=== PATIENT | female | born 1940 | race Caucasian/White ===

== ENCOUNTER 2017-05-27 12:00 | Inpatient (IN) | payer OTHER, MEDICARE ==
[2017-05-27 12:03] VITALS: BP 223/105; PULSE 63; RESP 15; TEMP 97.8; O2SAT 99
--- NOTE | 2017-05-27 13:17 | PD ---
HPI Chief Complaint: Abdominal Pain Time Seen by Provider: 12:22 Travel History International Travel<30 days: No Contact w/Intl Traveler<30days: No Traveled to known affect area: No History of Present Illness HPI 77-year-old female well-nourished well-developed arrives from urgent care clinic. She reports abdominal pain this morning in the left lower quadrant from the back to the front. She states the pain is severe. She felt mild similar pain 2 weeks ago and then again this morning with no intermittent pain. Nausea is reported with dry heaving however no vomiting of emesis. No diarrhea. No urinary complaints. No fever. Severity moderate. Timing constant. PFSH Social History Tobacco Use: No Allergies-Medications (Allergen,Severity, Reaction): Coded Allergies: No Known Allergies (Unverified , 05/27/17) Review of Systems Except as stated in HPI: all other systems reviewed are Neg General / Constitutional: No: Fever Physical Exam Narrative GENERAL: 77-year-old female well-nourished well-developed pleasant and in mild distress SKIN: Warm and dry. HEAD: Atraumatic. Normocephalic. EYES: Pupils equal and round. No scleral icterus. No injection or drainage. ENT: No nasal bleeding or discharge. Mucous membranes pink and moist. NECK: Trachea midline. No JVD. CARDIOVASCULAR: Regular rate and rhythm. RESPIRATORY: No accessory muscle use. Clear to auscultation. Breath sounds equal bilaterally. GASTROINTESTINAL: Soft. Minimal tenderness in the suprapubic area and left lower abdomen. MUSCULOSKELETAL: Extremities without clubbing, cyanosis, or edema. No obvious deformities. NEUROLOGICAL: Awake and alert. No obvious cranial nerve deficits. Motor grossly within normal limits. Five out of 5 muscle strength in the arms and legs. Normal speech. PSYCHIATRIC: Appropriate mood and affect; insight and judgment normal. Data Data Last Documented VS Vital Signs Date Time Temp Pulse Resp B/P (MAP) Pulse Ox O2 Delivery O2 Flow Rate FiO2 05/27/17 16:12 98.8 65 16 136/98 (111) 93 Room Air Vital signs reviewed and hypertension noted Orders Orders Complete Blood Count With Diff (05/27/17 12:30) Comprehensive Metabolic Panel (05/27/17 12:30) Lipase (05/27/17 12:30) Lactic Acid (05/27/17 12:30) Urinalysis - C+S If Indicated (05/27/17 12:30) Ct Abd/Pel W Iv Contrast(Rout) (05/27/17 12:30) Iv Access Insert/Monitor (05/27/17 12:30) Ecg Monitoring (05/27/17 12:30) Oximetry (05/27/17 12:30) Iohexol 350 Inj (Omnipaque 350 Inj) (05/27/17 15:09) Piperacil-Tazo 4.5 Gm Premix (Zosyn 4.5 (05/27/17 15:45) Sodium Chlor 0.9% 1000 Ml Inj (Ns 1000 M (05/27/17 15:45) Hydromorphone Pf Inj (Dilaudid Pf Inj) (05/27/17 16:15) Ondansetron Inj (Zofran Inj) (05/27/17 16:15) Admit Order (Ed Use Only) (05/27/17 ) Health Commissioner / Telemetry RYAN.[id number] (05/27/17 17:04) Vital Signs (Adult) Q4H (05/27/17 17:04) Diet Npo (05/27/17 Dinner) Activity Bed Rest (05/27/17 17:04) Labs Laboratory Tests Test 05/27/17 12:45 05/27/17 13:00 White Blood Count 12.0 TH/MM3 Red Blood Count 5.11 MIL/MM3 Hemoglobin 14.0 GM/DL Hematocrit 42.3 % Mean Corpuscular Volume 82.8 FL Mean Corpuscular Hemoglobin 27.3 PG Mean Corpuscular Hemoglobin Concent 33.0 % Red Cell Distribution Width 14.8 % Platelet Count 278 TH/MM3 Mean Platelet Volume 10.0 FL Neutrophils (%) (Auto) 91.5 % Lymphocytes (%) (Auto) 5.5 % Monocytes (%) (Auto) 2.8 % Eosinophils (%) (Auto) 0.0 % Basophils (%) (Auto) 0.2 % Neutrophils # (Auto) 11.0 TH/MM3 Lymphocytes # (Auto) 0.7 TH/MM3 Monocytes # (Auto) 0.3 TH/MM3 Eosinophils # (Auto) 0.0 TH/MM3 Basophils # (Auto) 0.0 TH/MM3 CBC Comment DIFF FINAL Differential Comment Blood Urea Nitrogen 17 MG/DL Creatinine 1.02 MG/DL Random Glucose 122 MG/DL Total Protein 8.0 GM/DL Albumin 3.9 GM/DL Calcium Level 10.4 MG/DL Alkaline Phosphatase 69 U/L Aspartate Amino Transf (AST/SGOT) 32 U/L Alanine Aminotransferase (ALT/SGPT) 18 U/L Total Bilirubin 0.5 MG/DL Sodium Level 136 MEQ/L Potassium Level 4.9 MEQ/L Chloride Level 105 MEQ/L Carbon Dioxide Level 25.9 MEQ/L Anion Gap 5 MEQ/L Estimat Glomerular Filtration Rate 53 ML/MIN Lactic Acid Level 1.0 mmol/L Lipase 76 U/L Urine Color LIGHT-YELLOW Urine Turbidity HAZY Urine pH 7.0 Urine Specific [place] 1.014 Urine Protein TRACE mg/dL Urine Glucose (UA) NEG mg/dL Urine Ketones TRACE mg/dL Urine Occult Blood NEG Urine Nitrite NEG Urine Bilirubin NEG Urine Urobilinogen LESS THAN 2.0 MG/DL Urine Leukocyte Esterase MOD Urine RBC 2 /hpf Urine WBC 7 /hpf Urine Squamous Epithelial Cells <1 /hpf Urine Transitional Epithelial Cells <1 /hpf Urine Amorphous Sediment FEW Microscopic Urinalysis Comment CULT NOT INDICATED MDM Medical Decision Making Medical Screen Exam Complete: Yes Emergency Medical Condition: Yes Differential Diagnosis Constipation, Gastritis, Acute Cholecystitis, Biliary Colic, Pancreatitis, ABREU , Hepatitis, Bowel Obstruction, Cystitis, Mesenteric Ischemia, AAA, Appendicitis , Renal Stone/Hydronephrosis, GERD, perforated viscous Narrative Course CBC & BMP Diagram 05/27/17 12:45 Total Protein 8.0, Albumin 3.9, Calcium Level 10.4 H, Alkaline Phosphatase 69, Aspartate Amino Transf (AST/SGOT) 32, Alanine Aminotransferase (ALT/SGPT) 18, Total Bilirubin 0.5 Urinalysis shows wbc's potentially consistent with UTI Last 24 hours Impressions Abdomen/Pelvis CT 05/27/17 1230 Signed Impressions: Service Date/Time: Saturday, May 27, 2017 15:06 - CONCLUSION: 1. Left-sided hydronephrosis and hydroureter. 2. Significant left-sided perinephric and anterior pararenal fluid characteristic of ruptured collecting system. 3. 3 mm calculus in the urinary bladder likely representing the obstructing calculus which has now passed into the bladder. 4. No other significant abnormality. Umair Dorsey MD Case discussed with urology. IV hydration and pain control. No indication for operative intervention this point Case discussed with Dr Degroot for [facility]. WBCs in urine noted. Zosyn started. 0.5 mg hydromorphone with antiemetics given at about 4:45 PM. Diagnosis Primary Impression: Hydronephrosis Qualified Codes: N13.30 - Unspecified hydronephrosis Admitting Information Admitting Physician Requests: Observation Tang Castañeda MD May 27, 2017 13:17
[2017-05-27 13:40] LABS: BLOOD, URINE NEG (NEG); GLUCOSE,URINE NEG (NEG); KETONE, URINE TRACE mg/dL (NEG); NITRITE,URINE NEG (NEG); SQUAMOUS EPITHELIAL CELL URINE <1 /hpf (0-5); TRANSITIONAL EPI CELLS, URINE <1 /hpf; URINE COLOR LIGHT-YELLOW (YELLW/STRAW)
[2017-05-27 13:41] LABS: COMMENT (UR) CULT NOT INDICATED; CULTURE IF INDICATED CULT NOT INDICATED
[2017-05-27 14:01] LABS: BASOPHIL % 0.2 % (0.0-2.0); HEMATOCRIT 42.3 % (35.0-46.0); HEMO FLAGS DIFF FINAL; LYMPH % 5.5 % (9.0-44.0); LYMPHOCYTE # 0.7 TH/MM3 (1.0-4.8); MEAN CELL VOLUME 82.8 FL (80.0-100.0); MEAN CORPUSCULAR HEMOGLOBIN 27.3 PG (27.0-34.0); MONO % 2.8 % (0.0-8.0); NEUT % 91.5 % (16.0-70.0); PLATELET COUNT 278 TH/MM3 (150-450); RED BLOOD COUNT 5.11 MIL/MM3 (4.00-5.30); RED CELL DISTRIBUTION WIDTH 14.8 % (11.6-17.2)
[2017-05-27 14:23] LABS: ALKALINE PHOSPHATASE 69 U/L (45-117); TOTAL BILIRUBIN ADULT 0.5 MG/DL (0.2-1.0)
[2017-05-27 14:27] LABS: ALT (GPT) 18 U/L (10-53); ANION GAP 5 MEQ/L (5-15); AST (GOT) 32 U/L (15-37); BICARBONATE 25.9 MEQ/L (21.0-32.0); BLOOD UREA NITROGEN 17 MG/DL (7-18); CHLORIDE 105 MEQ/L (98-107); GLOMERULAR FILTRATION RATE 53 ML/MIN (>89); SODIUM (NA) 136 MEQ/L (136-145)
[2017-05-27 14:29] LABS: POTASSIUM 4.9 MEQ/L (3.5-5.1)
[2017-05-27] MEDS ORDERED: IOHEXOL 350 MG/ML 10 ML VIAL (for RAD DIAG) IVCONTRAST ONE (15:09)
[2017-05-27] MEDS ORDERED: PIPERACIL-TAZO 4.5 GM PREMIX 100 ML IV ONE (15:45)
[2017-05-27] MEDS ORDERED: SODIUM CHLOR 0.9% 1000 ML INJ 1,000 ML IV ONE (15:45)
--- NOTE | 2017-05-27 15:54 | RADRPT ---
EXAM DATE/TIME: 05/27/2017 15:06 [place] COMPARISON: No previous studies available for comparison. INDICATIONS : Left abdominal pain. Nausea. IV CONTRAST: 80 cc Omnipaque 350 (iohexol) IV ORAL CONTRAST: No oral contrast ingested. RADIATION DOSE: 14.02 CTDIvol (mGy) MEDICAL HISTORY : Hypertension. SURGICAL HISTORY : Hysterectomy. ENCOUNTER: Initial ACUITY: 1 day PAIN SCALE: 10/10 LOCATION: Left abdomen. TECHNIQUE: Volumetric scanning of the abdomen and pelvis was performed. Using automated exposure control and ad justment of the mA and/or kV according to patient size, radiation dose was kept as low as reasonably achievable to obtain optimal diagnostic quality images. DICOM format image data is available electro nically for review and comparison. FINDINGS: LOWER LUNGS: The visualized lower lungs are clear. LIVER: Homogeneous density without lesion. There is no dilation of the biliary tree. No calcified gallston es. SPLEEN: Normal size without lesion. PANCREAS: Within normal limits. KIDNEYS: Marked distention is noted of the left renal collecting system. There is moderate hydronephrosis and [id number] hydroureter. Significant left-sided perinephric and anterior pararenal fluid is iden tified. The there are no calcifications seen in the left renal collecting system or along the course of the ureter. A 3 mm calculus is evident in the bladder. Right kidney and collecting system are unremarkable. ADRENAL GLANDS: Within normal limits. VASCULAR: There is no aortic aneurysm. BOWEL/MESENTERY: The stomach, small bowel, and colon demonstrate no acute abnormality. There is no free intraperitone al air or fluid. ABDOMINAL WALL: Within normal limits. RETROPERITONEUM: There is no lymphadenopathy. BLADDER: 3 mm calculus is identified along the posterior bladder wall adjacent to the left ureteral vesicle ju nction. REPRODUCTIVE: Within normal limits. INGUINAL: There is no lymphadenopathy or hernia. MUSCULOSKELETAL: Within normal limits for patient age. CONCLUSION: 1. Left-sided hydronephrosis and hydroureter. 2. Significant left-sided perinephric and anterior pararenal fluid characteristic of ruptured collect ing system. 3. 3 mm calculus in the urinary bladder likely representing the obstructing calculus which has now pa ssed into the bladder. 4. No other significant abnormality. Umair Dorsey MD on May 27, 2017 at 15:46 Board Certified Radiologist. This report was verified electronically.
[2017-05-27 16:12] VITALS: BP 136/98; PULSE 65; PULSE 71; RESP 15; RESP 16; TEMP 98.8; O2SAT 93; O2SAT 94
[2017-05-27] MEDS ORDERED: ONDANSETRON HCL 4 MG/2 ML VIAL IV PUSH ONE (16:15)
[2017-05-27] MEDS ORDERED: HYDROmorphone HCL PF 2 MG/ML VIAL IV PUSH ONE (16:15)
[2017-05-27 17:23] VITALS: BP 132/88
[2017-05-27] MEDS ORDERED: SODIUM CHLOR 0.9% 1000 ML INJ 1,000 ML IV SCH (17:56)
[2017-05-27 18:00] VITALS: BP_SYST 148; BP_SYST 181; BP_DIAS 68; BP_DIAS 83; PULSE 63; RESP 17; RESP 20; TEMP 97.6; O2SAT 92; O2SAT 94
[2017-05-27] MEDS ORDERED: SODIUM CHLORIDE 0.9% FLUSH 10 ML FLUSH IV FLUSH PRN (18:00)
[2017-05-27] MEDS ORDERED: ONDANSETRON HCL 4 MG/2 ML VIAL IVP PRN (18:00)
[2017-05-27] MEDS ORDERED: NALOXONE HCL 0.4 MG/ML AMP IV PUSH PRN (18:00)
[2017-05-27] MEDS ORDERED: HYDROmorphone HCL 2 MG TAB PO PRN (18:15)
--- NOTE | 2017-05-27 18:31 | HHI.HP ---
HPI Service [facility] Primary Care Physician Anmol Samson MD Admission Diagnosis Hydronephrosis; Vomiting Diagnoses: Chief Complaint: Left flank pain Travel History International Travel<30 Days: No Contact w/Intl Traveler <30 Da: No Traveled to Known Affected Are: No Sepsis Criteria SIRS Criteria (2 or more): WBC > 97431, < 4000 or > 10% bands History of Present Illness Patient is a 77-year-old female with past medical history of rheumatoid arthritis who came in due to hospital after being seen at the urgent care center for left flank pain, with nausea. Patient states she woke up this morning with left-sided flank pain that she described as very severe and sharp, about 10 over 10 radiating towards her abdomen and making her nauseous. She went to the urgent care center and was told to go to the emergency department at the hospital for further evaluation. Patient states that she is feeling much better now after they give her some pain medication, the pain is 5/10 and she is able to move around without any problems. Denies nausea, vomiting, fevers. Reports chills this morning. Denies any dysuria, hematuria. Denies any chest pain, palpitations, headaches, dizziness. Denies any shortness of breath or dyspnea. Abdominal CT showed 1. Left-sided hydronephrosis and hydroureter. 2. Significant left-sided perinephric and anterior pararenal fluid characteristic of ruptured collecting system. 3. 3 mm calculus in the urinary bladder likely representing obstructing calculus which has now passed into the bladder no other significant abnormality. Review of Systems Except as stated in HPI: all other systems reviewed are Neg Past Family Social History Past Medical History Rheumatoid arthritis Question hypertension but states she doesn't take any medication Questionable thyroid disease but states she doesn't take any medication Past Surgical History Right knee replacement Reported Medications None Allergies: Coded Allergies: No Known Allergies (Unverified , 05/27/17) Active Ordered Medications Current Medications Medications (Trade) Dose Ordered Sig/Bharathi Route Start Time Stop Time Status Last Admin Sodium Chloride 1,000 ml @ 75 mls/hr [id number] IV 05/27/17 17:56 UNV (NS Flush) 2 ml UNSCH PRN IV FLUSH 05/27/17 18:00 UNV (NS Flush) 2 ml BID IV FLUSH 05/27/17 21:00 UNV (Zofran Inj) 4 mg Q6H PRN IVP 05/27/17 18:00 UNV (Narcan Inj) 0.4 mg UNSCH PRN IV PUSH 05/27/17 18:00 UNV Piperacillin Sod/ Tazobactam Sod 100 ml @ 200 mls/hr Q6H IV 05/27/17 21:00 UNV (Dilaudid) 1 mg Q6H PRN PO 05/27/17 18:15 UNV Family History Father and mother have heart disease. Father at the age of 91, mother at the age of 85 Social History Denies alcohol use Denies tobacco use Denies illicit drug use Physical Exam Vital Signs Vital Signs Date Time Temp Pulse Resp B/P (MAP) Pulse Ox O2 Delivery O2 Flow Rate FiO2 05/27/17 17:23 70 16 132/88 (103) 95 05/27/17 16:12 98.8 65 16 136/98 (111) 93 Room Air 05/27/17 16:12 98.8 71 15 136/98 (111) 94 Room Air 05/27/17 12:03 97.8 63 15 223/105 (144) 99 Physical Exam GENERAL: This is a well-nourished, well-developed patient, in no apparent distress. SKIN: Cool and dry. HEAD: Atraumatic. Normocephalic. No temporal or scalp tenderness. EYES: Pupils equal round and reactive. Extraocular motions intact. No scleral icterus. No injection or drainage. ENT: Nose without bleeding. Throat without erythema. Uvula midline. Airway patent. NECK: Trachea midline. No JVD or lymphadenopathy. Supple. CARDIOVASCULAR: Regular rate and rhythm without murmurs, gallops, or rubs. RESPIRATORY: Clear to auscultation. Breath sounds equal bilaterally. No wheezes , rales, or rhonchi. GASTROINTESTINAL: Abdomen soft, nondistended. Bowel sounds hypoactive. Mild CVA tenderness left side and left flank area. MUSCULOSKELETAL: Extremities without clubbing, cyanosis, or edema. NEUROLOGICAL: Awake and alert. Cranial nerves II through XII intact. Motor and sensory grossly within normal limits. Normal speech. Laboratory Laboratory Tests Test 05/27/17 12:45 05/27/17 13:00 White Blood Count 12.0 Red Blood Count 5.11 Hemoglobin 14.0 Hematocrit 42.3 Mean Corpuscular Volume 82.8 Mean Corpuscular Hemoglobin 27.3 Mean Corpuscular Hemoglobin Concent 33.0 Red Cell Distribution Width 14.8 Platelet Count 278 Mean Platelet Volume 10.0 Neutrophils (%) (Auto) 91.5 Lymphocytes (%) (Auto) 5.5 Monocytes (%) (Auto) 2.8 Eosinophils (%) (Auto) 0.0 Basophils (%) (Auto) 0.2 Neutrophils # (Auto) 11.0 Lymphocytes # (Auto) 0.7 Monocytes # (Auto) 0.3 Eosinophils # (Auto) 0.0 Basophils # (Auto) 0.0 CBC Comment DIFF FINAL Differential Comment Blood Urea Nitrogen 17 Creatinine 1.02 Random Glucose 122 Total Protein 8.0 Albumin 3.9 Calcium Level 10.4 Alkaline Phosphatase 69 Aspartate Amino Transf (AST/SGOT) 32 Alanine Aminotransferase (ALT/SGPT) 18 Total Bilirubin 0.5 Sodium Level 136 Potassium Level 4.9 Chloride Level 105 Carbon Dioxide Level 25.9 Anion Gap 5 Estimat Glomerular Filtration Rate 53 Lactic Acid Level 1.0 Lipase 76 Urine Color LIGHT-YELLOW Urine Turbidity HAZY Urine pH 7.0 Urine Specific [place] 1.014 Urine Protein TRACE Urine Glucose (UA) NEG Urine Ketones TRACE Urine Occult Blood NEG Urine Nitrite NEG Urine Bilirubin NEG Urine Urobilinogen LESS THAN 2.0 Urine Leukocyte Esterase MOD Urine RBC 2 Urine WBC 7 Urine Squamous Epithelial Cells <1 Urine Transitional Epithelial Cells <1 Urine Amorphous Sediment FEW Microscopic Urinalysis Comment CULT NOT INDICATED Result Diagram: 05/27/17 1245 05/27/17 1245 Imaging Last Impressions Abdomen/Pelvis CT 05/27/17 1230 Signed Impressions: Service Date/Time: Saturday, May 27, 2017 15:06 - CONCLUSION: 1. Left-sided hydronephrosis and hydroureter. 2. Significant left-sided perinephric and anterior pararenal fluid characteristic of ruptured collecting system. 3. 3 mm calculus in the urinary bladder likely representing the obstructing calculus which has now passed into the bladder. 4. No other significant abnormality. Umair F. Sunita, MD Caprini VTE Risk Assessment Caprini VTE Risk Assessment: Mod/High Risk (score >= 2) Caprini Risk Assessment Model Point Value = 1 Point Value = 2 Point Value = 3 Point Value = 5 Age 41-60 Minor surgery BMI > 25 kg/m2 Swollen legs Varicose veins or History of unexplained or recurrent spontaneous Oral contraceptives or hormone replacement Sepsis (< 1 month) Serious lung disease, including pneumonia (< 1 month) Abnormal pulmonary function Acute myocardial infarction Congestive heart failure (< 1 month) History of inflammatory bowel disease Medical patient at bed rest Age 61-74 Arthroscopic surgery Major open surgery (> 45 min) Laparoscopic surgery (> 45 min) Malignancy Confined to bed (> 72 hours) Immobilizing plaster cast Central venous access Age >= 75 History of VTE Family history of VTE Factor V Leiden Prothrombin [id number] Lupus anticoagulant Anticardiolipin antibodies Elevated serum homocysteine Heparin-induced thrombocytopenia Other congenital or acquired thrombophilia Stroke (< 1 month) Elective arthroplasty Hip, pelvis, or leg fracture Acute spinal cord injury (< 1 month) Prophylaxis Regimen Total Risk Factor Score Risk Level Prophylaxis Regimen 0-1 Low Early ambulation 2 Moderate Order ONE of the following: *Sequential Compression Device (SCD) *Heparin 5000 units SQ BID 3-4 Higher Order ONE of the following medications: *Heparin 5000 units SQ TID *Enoxaparin/Lovenox 40 mg SQ daily (WT < 150 kg, CrCl > 30 mL/min) *Enoxaparin/Lovenox 30 mg SQ daily (WT < 150 kg, CrCl > 10-29 mL/min) *Enoxaparin/Lovenox 30 mg SQ BID (WT < 150 kg, CrCl > 30 mL/min) AND/OR *Sequential Compression Device (SCD) 5 or more Highest Order ONE of the following medications: *Heparin 5000 units SQ TID (Preferred with Epidurals) *Enoxaparin/Lovenox 40 mg SQ daily (WT < 150 kg, CrCl > 30 mL/min) *Enoxaparin/Lovenox 30 mg SQ daily (WT < 150 kg, CrCl > 10-29 mL/min) *Enoxaparin/Lovenox 30 mg SQ BID (WT < 150 kg, CrCl > 30 mL/min) AND *Sequential Compression Device (SCD) Assessment and Plan Problem List: (1) Hydronephrosis ICD Code: N13.30 - Unspecified hydronephrosis Status: Acute Assessment and Plan Patient is a 77-year-old female with past medical history of rheumatoid arthritis who came in due to hospital after being seen at the urgent care center for left flank pain, with nausea. Acute Hydronephrosis, hydroureter Leukocytosis - Abdominal CT showed 1. Left-sided hydronephrosis and hydroureter. 2. Significant left-sided perinephric and anterior pararenal fluid characteristic of ruptured collecting system. 3. 3 mm calculus in the urinary bladder likely representing obstructing calculus which has now passed into the bladder no other significant abnormality. - WBC 12, possibly secondary to severe inflammation due to hydronephrosis and hydroureter. - IV antibiotics Zosyn for now. DC tomorrow. - Continue IV fluid for hydration. Zofran for nausea - Patient reports improvement as to her pain. Hydromorphone IV for pain management given. Switch to PO. - Follow up labs in a.m. - Urology was earlier consulted no indication for operative intervention at this point - Plan for discharge tomorrow when labs are within normal and when pain is manageable. Acute kidney injury - Possibly secondary to hydronephrosis secondary to calculus. - IV fluid for hydration. Avoid nephrotoxins. - Follow renal indices tomorrow. DVT prop SCDs Code Status Full code Discussed Condition With Patient, nursing, Dr. Jarvis Problem Qualifiers (1) Hydronephrosis: Qualified Codes: N13.30 - Unspecified hydronephrosis Ara Perera May 27, 2017 18:31
[2017-05-27 20:00] VITALS: BP 159/78; PULSE 72; RESP 18; TEMP 98.2; O2SAT 95
[2017-05-27] MEDS: PIPERACIL-TAZO 4.5 GM PREMIX 100 ML IV SCH (21:57)
[2017-05-27] MEDS: SODIUM CHLORIDE 0.9% FLUSH 10 ML FLUSH IV FLUSH SCH (21:57)
[2017-05-27] MEDS: SODIUM CHLOR 0.9% 1000 ML INJ 1,000 ML IV SCH (21:57)
[2017-05-27 22:00] VITALS: PULSE 69
[2017-05-28] VITALS: BP 157/76; PULSE 72; RESP 18; TEMP 97.3; O2SAT 95
[2017-05-28 04:00] VITALS: BP 174/84; PULSE 70; RESP 18; TEMP 98.3; O2SAT 95
[2017-05-28 04:04] VITALS: O2SAT 97
[2017-05-28] MEDS: PIPERACIL-TAZO 4.5 GM PREMIX 100 ML IV SCH ×2 (04:27→08:48)
[2017-05-28] MEDS: SODIUM CHLOR 0.9% 1000 ML INJ 1,000 ML IV SCH (04:45)
[2017-05-28 08:00] VITALS: BP 147/77; PULSE 66; RESP 20; TEMP 98.1; O2SAT 94
[2017-05-28] MEDS: SODIUM CHLORIDE 0.9% FLUSH 10 ML FLUSH IV FLUSH SCH (08:49)
[2017-05-28] MEDS ORDERED: ZOFR4TAB3 SL (10:32)
--- NOTE | 2017-05-28 10:36 | HHI.PR ---
Subjective Remarks Follow-up hydronephrosis/left nephrolithiasis 05/28/17-patient seen and examined, denies any nausea or vomiting. Some mild left flank pain otherwise stable. Tolerated by mouth without any complication is morning. Objective Vitals Vital Signs Date Time Temp Pulse Resp B/P (MAP) Pulse Ox O2 Delivery O2 Flow Rate FiO2 05/28/17 08:00 98.1 66 20 147/77 (100) 94 05/28/17 04:04 97 05/28/17 04:00 98.3 70 18 174/84 (114) 95 05/28/17 00:00 97.3 72 18 157/76 (103) 95 05/27/17 22:00 69 05/27/17 20:00 98.2 72 18 159/78 (105) 95 05/27/17 18:00 97.6 63 20 181/83 (115) 94 05/27/17 17:23 70 16 132/88 (103) 95 05/27/17 16:12 98.8 65 16 136/98 (111) 93 Room Air 05/27/17 16:12 98.8 71 15 136/98 (111) 94 Room Air 05/27/17 12:03 97.8 63 15 223/105 (144) 99 I/O 05/27/17 05/27/17 05/27/17 05/28/17 05/28/17 05/28/17 07:00 15:00 23:00 07:00 15:00 23:00 Intake Total 1100 ml 625 ml Output Total 380 ml Balance 1100 ml 245 ml Intake IV Total 1100 ml 625 ml Output Urine Total 380 ml # Voids 1 # Bowel Movements 0 Result Diagram: 05/27/17 1245 05/27/17 1245 Imaging Last Impressions Abdomen/Pelvis CT 05/27/17 1230 Signed Impressions: Service Date/Time: Saturday, May 27, 2017 15:06 - CONCLUSION: 1. Left-sided hydronephrosis and hydroureter. 2. Significant left-sided perinephric and anterior pararenal fluid characteristic of ruptured collecting system. 3. 3 mm calculus in the urinary bladder likely representing the obstructing calculus which has now passed into the bladder. 4. No other significant abnormality. Umair Dorsey MD Objective Remarks GENERAL: NAD SKIN: Warm and dry. HEAD: Normocephalic. EYES: No scleral icterus. No injection or drainage. NECK: Supple, trachea midline. No JVD or lymphadenopathy. CARDIOVASCULAR: Regular rate and rhythm without murmurs, gallops, or rubs. RESPIRATORY: Breath sounds equal bilaterally. No accessory muscle use. GASTROINTESTINAL: Abdomen soft, non-tender, nondistended. MUSCULOSKELETAL: No cyanosis, or edema. BACK: Nontender without obvious deformity. mild left CVA tenderness. A/P Problem List: (1) Hydronephrosis ICD Code: N13.30 - Unspecified hydronephrosis Status: Acute Assessment and Plan Acute Hydronephrosis, hydroureter Leukocytosis - Abdominal CT showed 1. Left-sided hydronephrosis and hydroureter. 2. Significant left-sided perinephric and anterior pararenal fluid characteristic of ruptured collecting system. 3. 3 mm calculus in the urinary bladder likely representing obstructing calculus which has now passed into the bladder no other significant abnormality. - d/c Zosyn f - Continue IV fluid for hydration. - Pain management accordingly - Urology was earlier consulted no indication for operative intervention at this point Acute kidney injury - Possibly secondary to hydronephrosis secondary to calculus. - IV fluid for hydration. Avoid nephrotoxins. DVT prop SCDs Discharge Planning Discharge patient to home Condition on discharge: Improved Regular Diet as tolerated Ad Melida activity Rx written:see EMR Follow-up with primary care physician in 1 week Problem Qualifiers (1) Hydronephrosis: Qualified Codes: N13.30 - Unspecified hydronephrosis Narendra Emery MD May 28, 2017 10:36
[2017-05-28 11:48] LABS: BASOPHIL # 0.1 TH/MM3 (0-0.2); BASOPHIL % 0.8 % (0.0-2.0); EOSINOPHIL % 0.2 % (0.0-4.0); HEMATOCRIT 41.7 % (35.0-46.0); HEMO FLAGS DIFF FINAL; LYMPH % 20.8 % (9.0-44.0); LYMPHOCYTE # 1.9 TH/MM3 (1.0-4.8); MEAN CELL VOLUME 82.7 FL (80.0-100.0); MEAN CORPUSCULAR HEMOGLOBIN 26.6 PG (27.0-34.0); MEAN CORPUSCULAR HGB CONC 32.2 % (32.0-36.0); MONO % 11.6 % (0.0-8.0); NEUT % 66.6 % (16.0-70.0); PLATELET COUNT 292 TH/MM3 (150-450); RED BLOOD COUNT 5.04 MIL/MM3 (4.00-5.30)
[2017-05-28 12:00] VITALS: BP_SYST 198; BP_SYST 211; BP_DIAS 110; BP_DIAS 115; PULSE 68; RESP 19; TEMP 98.5; O2SAT 56
[2017-05-28] MEDS ORDERED: cloNIDine HCL 0.2 MG TAB PO ONE (12:10)
[2017-05-28 12:17] LABS: BICARBONATE 24.2 MEQ/L (21.0-32.0); POTASSIUM 3.5 MEQ/L (3.5-5.1)
--- NOTE | 2017-05-28 12:59 | PD.CONS ---
HPI Service Urology Consult Requested By Reason for Consult Left Hydronephrosis Primary Care Physician Anmol Samson MD Diagnosis: History of Present Illness 77 yo female presented with acute onset of left flank pain, 03/25, radiating to her left groin with nausea yesterday afternoon. CT showed 3 mm stone in her bladder along with left hydronephrosis, left forniceal rupture. She was admitted for pain control, antibiotics. She denies prior episodes. Denies hematuria, dysuria. Denies h/o kidney stones in the past. Her pain is much improved today. She occasionally gets a UTI. Review of Systems Gastrointestinal: COMPLAINS OF: Abdominal pain Except as stated in HPI: all other systems reviewed are Neg Past Family Social History Past Medical History HTN, Hypothyroid Past Surgical History right knee replacement Allergies: Coded Allergies: No Known Allergies (Unverified , 05/27/17) Active Ordered Medications Dilaudid Family History Denies urolithiasis, malignancies. Social History denies EtOH, illicit drugs, tobacco use Physical Exam Vital Signs Date Time Temp Pulse Resp B/P (MAP) Pulse Ox O2 Delivery O2 Flow Rate FiO2 05/28/17 12:00 98.5 68 19 211/115 (147) 56 198/110 (139) 05/28/17 08:00 98.1 66 20 147/77 (100) 94 05/28/17 04:04 97 05/28/17 04:00 98.3 70 18 174/84 (114) 95 05/28/17 00:00 97.3 72 18 157/76 (103) 95 05/27/17 22:00 69 05/27/17 20:00 98.2 72 18 159/78 (105) 95 05/27/17 18:00 97.6 63 20 181/83 (115) 94 05/27/17 17:23 70 16 132/88 (103) 95 05/27/17 16:12 98.8 65 16 136/98 (111) 93 Room Air 05/27/17 16:12 98.8 71 15 136/98 (111) 94 Room Air Physical Exam GENERAL: This is a well-nourished, well-developed patient, in no apparent distress. SKIN: No rashes, ecchymoses or lesions. Cool and dry. HEAD: Atraumatic. Normocephalic. No temporal or scalp tenderness. EYES: Pupils equal round and reactive. Extraocular motions intact. No scleral icterus. No injection or drainage. ENT: Nose without bleeding, purulent drainage or septal hematoma. Throat without erythema, tonsillar hypertrophy or exudate. Uvula midline. Airway patent. NECK: Trachea midline. No JVD or lymphadenopathy. Supple, nontender, no meningeal signs. CARDIOVASCULAR: Regular rate and rhythm without murmurs, gallops, or rubs. RESPIRATORY: Clear to auscultation. Breath sounds equal bilaterally. No wheezes , rales, or rhonchi. GASTROINTESTINAL: Abdomen soft, non-tender, nondistended. No hepato-splenomegaly , or palpable masses. No guarding. GENITOURINARY: no CVA tenderness MUSCULOSKELETAL: Extremities without clubbing, cyanosis, or edema. No joint tenderness, effusion, or edema noted. No calf tenderness. Negative Homans sign bilaterally. NEUROLOGICAL: Awake and alert. Cranial nerves II through XII intact. Motor and sensory grossly within normal limits. Five out of 5 muscle strength in all muscle groups. Normal speech. Lab results reviewed: Yes Laboratory Tests Test 05/27/17 13:00 05/28/17 10:15 Urine Color LIGHT-YELLOW Urine Turbidity HAZY Urine pH 7.0 Urine Specific Tamms 1.014 Urine Protein TRACE Urine Glucose (UA) NEG Urine Ketones TRACE Urine Occult Blood NEG Urine Nitrite NEG Urine Bilirubin NEG Urine Urobilinogen LESS THAN 2.0 Urine Leukocyte Esterase MOD Urine RBC 2 Urine WBC 7 Urine Squamous Epithelial Cells <1 Urine Transitional Epithelial Cells <1 Urine Amorphous Sediment FEW Microscopic Urinalysis Comment CULT NOT INDICATED White Blood Count 9.0 Red Blood Count 5.04 Hemoglobin 13.4 Hematocrit 41.7 Mean Corpuscular Volume 82.7 Mean Corpuscular Hemoglobin 26.6 Mean Corpuscular Hemoglobin Concent 32.2 Red Cell Distribution Width 15.0 Platelet Count 292 Mean Platelet Volume 9.6 Neutrophils (%) (Auto) 66.6 Lymphocytes (%) (Auto) 20.8 Monocytes (%) (Auto) 11.6 Eosinophils (%) (Auto) 0.2 Basophils (%) (Auto) 0.8 Neutrophils # (Auto) 6.0 Lymphocytes # (Auto) 1.9 Monocytes # (Auto) 1.0 Eosinophils # (Auto) 0.0 Basophils # (Auto) 0.1 CBC Comment DIFF FINAL Differential Comment Blood Urea Nitrogen 19 Creatinine 1.66 Random Glucose 83 Calcium Level 9.7 Sodium Level 138 Potassium Level 3.5 Chloride Level 105 Carbon Dioxide Level 24.2 Anion Gap 9 Estimat Glomerular Filtration Rate 30 Result Diagram: 05/28/17 1015 05/28/17 1015 Personally reviewed images: Yes (left hydronephrosis with ruptured fornix, 3 mm stone in bladder) Imaging Last Impressions Abdomen/Pelvis CT 05/27/17 1230 Signed Impressions: Service Date/Time: Saturday, May 27, 2017 15:06 - CONCLUSION: 1. Left-sided hydronephrosis and hydroureter. 2. Significant left-sided perinephric and anterior pararenal fluid characteristic of ruptured collecting system. 3. 3 mm calculus in the urinary bladder likely representing the obstructing calculus which has now passed into the bladder. 4. No other significant abnormality. Umair Dorsey MD Assessment and Plan Assessment and Plan 77 yo female with left hydronephrosis, forniceal rupture secondary to acute passage of 3 mm left ureteral stone -she is improving -recommend conservative management -d/c home on pain meds, antibiotics -F/U in office as outpatient -Thank you for this consult. Please call with any questions. Maynor Hartley MD May 28, 2017 12:59
[2017-05-28 14:00] VITALS: BP 164/80
== END 2017-05-28 16:20 | disposition home or self-care (01) | DRG 694 ==
LOC: NEPD 12:00 → NEDA 17:06 → N07A 17:34
PROVIDERS: ADMIT Hospitalist; ATTEND Hospitalist
DX: N13.2 Hydronephrosis with renal and ureteral calculous obstruction (principal); N17.9 Acute kidney failure, unspecified; M06.9 Rheumatoid arthritis, unspecified; N21.0 Calculus in bladder; Z96.651 Presence of right artificial knee joint; I10 Essential (primary) hypertension; E03.9 Hypothyroidism, unspecified; R11.0 Nausea
CPT/HCPCS: 74177; 80048; 80053; 81001; 83605; 83690; 85025; J1170; J2405; J2543; J7030; Q9967

== ENCOUNTER 2017-08-16 11:57 | Emergency (ER) | payer OTHER ==
[~2017-08-16] VITALS: Ht 160 cm; Wt 66.3 kg
[~2017-08-16 11:57] MED LIST: ZOFR4TAB3 SL
[2017-08-16 12:01] VITALS: BP 193/90; PULSE 81; RESP 16; TEMP 98.1; O2SAT 99
[2017-08-16] MEDS ORDERED: SODIUM CHLORIDE 0.9% FLUSH 10 ML FLUSH IVF PRN (12:30)
--- NOTE | 2017-08-16 12:41 | PD ---
HPI Chief Complaint: Hypertension Time Seen by Provider: 12:09 Travel History International Travel<30 days: No Contact w/Intl Traveler<30days: No Traveled to known affect area: No History of Present Illness HPI Patient is a 77-year-old female presents emergency department chiefly for evaluation of elevated blood pressure. Patient states she has had some pain in her left upper extremity for the past few days and denies any trauma from it thinks it comes from her neck. No chest pain no shortness of breath no abdominal pain no nausea vomiting. She states her friend is visiting from out of town and her friend suffers from low blood pressure so the patient decided to take her blood pressure yesterday and found it elevated to 200 systolic. She went to her primary care physician's yesterday and saw the [employer] who advised her to keep a record of her blood pressure over the weekend and then return on Friday for further evaluation. The patient took her blood pressure again this morning and decided to come in to the emergency department to be seen. She is not on any blood pressure medication has never been on any. No darkening of the urine no shortness of breath no headache no chest pain no shortness of breath. PFSH Past Medical History Arthritis: Yes Asthma: No Autoimmune Disease: Yes (arthritis) Heart Rhythm Problems: No Cancer: No Cardiovascular Problems: No High Cholesterol: No Chemotherapy: No Chest Pain: No Congestive Heart Failure: No COPD: No Cerebrovascular Accident: No Diabetes: No Diminished Hearing: No Endocrine: No GERD: Yes Genitourinary: Yes Hiatal Hernia: No Hypertension: Yes (hx of but states takes no meds) Immune Disorder: No Kidney Stones: Yes Musculoskeletal: Yes Neurologic: No Psychiatric: No Reproductive: No Respiratory: No Migraines: No Radiation Therapy: No Renal Failure: No Seizures: No Sickle Cell Disease: No Sleep Apnea: No Thyroid Disease: No Ulcer: No Tetanus Vaccination: Unknown Influenza Vaccination: Yes ?: Not Menopausal: Yes Dilation and Curettage (D&C): Yes (x1 endometrosis) Past Surgical History Abdominal Surgery: No AICD: No Arteriovenous Shunt: No Cardiac Surgery: No Ear Surgery: No Endocrine Surgery: No Eye Surgery: No Genitourinary Surgery: No Gynecologic Surgery: No Insulin Pump: No Joint Replacement: Yes (right knee) Neurologic Surgery: No Oral Surgery: No Pacemaker: No Thoracic Surgery: No Tonsillectomy: Yes Other Surgery: No Social History Alcohol Use: Yes (occas. wine) Tobacco Use: No Substance Use: No Allergies-Medications (Allergen,Severity, Reaction): Coded Allergies: No Known Allergies (Unverified , 08/16/17) Reported Meds & Prescriptions Reported Meds & Active Scripts Active No Active Prescriptions or Reported Medications Review of Systems Except as stated in HPI: all other systems reviewed are Neg Physical Exam Narrative GENERAL: Well-developed 77-year-old female quite pleasant in no obvious distress per SKIN: Focused skin assessment warm/dry. HEAD: Atraumatic. Normocephalic. EYES: Pupils equal and round. No scleral icterus. No injection or drainage. ENT: No nasal bleeding or discharge. Mucous membranes pink and moist. NECK: Trachea midline. No JVD. CARDIOVASCULAR: Regular rate and rhythm. No murmur appreciated. RESPIRATORY: No accessory muscle use. Clear to auscultation. Breath sounds equal bilaterally. GASTROINTESTINAL: Abdomen soft, non-tender, nondistended. Hepatic and splenic margins not palpable. MUSCULOSKELETAL: No obvious deformities. No clubbing. No cyanosis. No edema. Full nontender range of motion of all joints in the upper extremities bilaterally. Compartments soft, no gross deformity. 2+ bilateral equal pulses felt in all 4 extremities. NEUROLOGICAL: Awake and alert. No obvious cranial nerve deficits. Motor grossly within normal limits. Normal speech. PSYCHIATRIC: Appropriate mood and affect; insight and judgment normal. Data Data Last Documented VS Vital Signs Date Time Temp Pulse Resp B/P (MAP) Pulse Ox O2 Delivery O2 Flow Rate FiO2 08/16/17 14:09 70 16 172/85 (114) 08/16/17 12:50 95 Room Air 08/16/17 12:01 98.1 Orders Orders Electrocardiogram (08/16/17 12:26) Complete Blood Count With Diff (08/16/17 12:26) Comprehensive Metabolic Panel (08/16/17 12:26) Magnesium (Mg) (08/16/17 12:26) Troponin I (08/16/17 12:26) Chest, Single Ap (08/16/17 12:26) Ecg Monitoring (08/16/17 12:26) Iv Access Insert/Monitor (08/16/17 12:26) Oximetry (08/16/17 12:26) Oxygen Administration (08/16/17 12:26) Sodium Chloride 0.9% Flush (Ns Flush) (08/16/17 12:30) Shoulder, Limited(2vws) (08/16/17 ) Ed Discharge Order (08/16/17 13:56) Labs Laboratory Tests Test 08/16/17 13:00 White Blood Count 7.4 TH/MM3 Red Blood Count 4.96 MIL/MM3 Hemoglobin 13.2 GM/DL Hematocrit 40.6 % Mean Corpuscular Volume 81.7 FL Mean Corpuscular Hemoglobin 26.6 PG Mean Corpuscular Hemoglobin Concent 32.5 % Red Cell Distribution Width 14.1 % Platelet Count 343 TH/MM3 Mean Platelet Volume 9.2 FL Neutrophils (%) (Auto) 65.3 % Lymphocytes (%) (Auto) 19.6 % Monocytes (%) (Auto) 10.1 % Eosinophils (%) (Auto) 0.9 % Basophils (%) (Auto) 4.1 % Neutrophils # (Auto) 4.7 TH/MM3 Lymphocytes # (Auto) 1.5 TH/MM3 Monocytes # (Auto) 0.8 TH/MM3 Eosinophils # (Auto) 0.1 TH/MM3 Basophils # (Auto) 0.3 TH/MM3 CBC Comment DIFF FINAL Differential Comment Blood Urea Nitrogen 19 MG/DL Creatinine 0.65 MG/DL Random Glucose 88 MG/DL Total Protein 7.6 GM/DL Albumin 3.5 GM/DL Calcium Level 9.7 MG/DL Magnesium Level 2.4 MG/DL Alkaline Phosphatase 70 U/L Aspartate Amino Transf (AST/SGOT) 20 U/L Alanine Aminotransferase (ALT/SGPT) 14 U/L Total Bilirubin 0.2 MG/DL Sodium Level 138 MEQ/L Potassium Level 4.4 MEQ/L Chloride Level 106 MEQ/L Carbon Dioxide Level 27.1 MEQ/L Anion Gap 5 MEQ/L Estimat Glomerular Filtration Rate 88 ML/MIN Troponin I LESS THAN 0.02 NG/ML MDM Medical Decision Making Medical Screen Exam Complete: Yes Emergency Medical Condition: Yes Interpretation(s) EKG shows sinus rhythm with left axis deviation and late R-wave transition, no concerning ST segment changes. Intervals within normal limits. This is an abnormal EKG. Differential Diagnosis Elevated blood pressure, hypertensive emergency unlikely, ACS unlikely, TX unlikely, musculoskeletal arm pain Narrative Course Patient roomed in the emergency department, her symptoms are highly suggestive of cause other than cardiac for her shoulder pain. She has not had any chest pain. She is a pleasant patient who appears to be in no obvious distress and is here only because she took her blood pressure with her friends blood pressure cuff. She has a plan for follow-up with her primary care physician already, I have sent basic labs and they are reassuring. EKG has nonspecific findings but certainly is not ischemic. At this time I do not see the indication to start acute management of her blood pressure nor indication to start her on chronic blood pressure management as she has follow-up with her primary care physician coming up. She verbalized understanding and agreement with this plan after was explained to her and she is stable for discharge discussed return to ED criteria Diagnosis Primary Impression: Shoulder pain, left Additional Impression: Elevated blood pressure reading Scripts No Active Prescriptions or Reported Meds Disposition: 01 DISCHARGE HOME Condition: Stable Phil Alejandro MD Aug 16, 2017 12:41
[2017-08-16 12:50] VITALS: RESP 16; O2SAT 96
--- NOTE | 2017-08-16 13:13 | RADRPT ---
EXAM DATE/TIME: 08/16/2017 12:59 [facility] COMPARISON: No previous studies available for comparison. INDICATIONS : Left shoulder area pain, no known injury MEDICAL HISTORY : None. SURGICAL HISTORY : None. ENCOUNTER: Initial ACUITY: 3 days PAIN SCORE: 8/10 LOCATION: Left shoulder FINDINGS: Two view examination of the left shoulder demonstrates no evidence of fracture or dislocation. The g lenohumeral and acromioclavicular joints are maintained. Bony mineralization is normal. CONCLUSION: Abdominal alignment, negative for fracture Rajiv Gray MD FACR on August 16, 2017 at 13:12 Board Certified Radiologist. This report was verified electronically.
--- NOTE | 2017-08-16 13:13 | RADRPT ---
EXAM DATE/TIME: 08/16/2017 12:57 [facility] COMPARISON: No previous studies available for comparison. INDICATIONS : Left upper chest area pain MEDICAL HISTORY : None. SURGICAL HISTORY : None. ENCOUNTER: Initial ACUITY: 3 days PAIN SCORE: 8/10 LOCATION: Left upper chest FINDINGS: A single view of the chest demonstrates the lungs to be symmetrically aerated without evidence of mas s, infiltrate or effusion. The cardiomediastinal contours are unremarkable. Osseous structures are intact. CONCLUSION: Normal examination. Wang Mcguire MD on August 16, 2017 at 13:11 Board Certified Radiologist. This report was verified electronically.
[2017-08-16 13:19] LABS: AUTOMATED NEUTROPHIL # 4.7 TH/MM3 (1.8-7.7); BASOPHIL # 0.3 TH/MM3 (0-0.2); BASOPHIL % 4.1 % (0.0-2.0); EOSINOPHIL # 0.1 TH/MM3 (0-0.4); EOSINOPHIL % 0.9 % (0.0-4.0); HEMATOCRIT 40.6 % (35.0-46.0); HEMOGLOBIN 13.2 GM/DL (11.6-15.3); LYMPH % 19.6 % (9.0-44.0); LYMPHOCYTE # 1.5 TH/MM3 (1.0-4.8); MEAN CELL VOLUME 81.7 FL (80.0-100.0); MEAN CORPUSCULAR HEMOGLOBIN 26.6 PG (27.0-34.0); MEAN CORPUSCULAR HGB CONC 32.5 % (32.0-36.0); MEAN PLATELET VOLUME 9.2 FL (7.0-11.0); MONO % 10.1 % (0.0-8.0); MONOCYTE # 0.8 TH/MM3 (0-0.9); NEUT % 65.3 % (16.0-70.0); PLATELET COUNT 343 TH/MM3 (150-450); RED BLOOD COUNT 4.96 MIL/MM3 (4.00-5.30); RED CELL DISTRIBUTION WIDTH 14.1 % (11.6-17.2); WHITE BLOOD COUNT 7.4 TH/MM3 (4.0-11.0)
[2017-08-16 13:32] LABS: CHLORIDE 106 MEQ/L (98-107); SODIUM (NA) 138 MEQ/L (136-145)
[2017-08-16 13:35] LABS: CALCIUM 9.7 MG/DL (8.5-10.1)
[2017-08-16 13:36] LABS: ALBUMIN 3.5 GM/DL (3.4-5.0); BICARBONATE 27.1 MEQ/L (21.0-32.0); BLOOD UREA NITROGEN 19 MG/DL (7-18); GLUCOSE,RANDOM 88 MG/DL (74-106); MAGNESIUM 2.4 MG/DL (1.5-2.5)
[2017-08-16 13:39] LABS: ALT (GPT) 14 U/L (10-53); AST (GOT) 20 U/L (15-37); CREATININE 0.65 MG/DL (0.50-1.00); GLOMERULAR FILTRATION RATE 88 ML/MIN (>89)
[2017-08-16 13:40] LABS: TOTAL BILIRUBIN ADULT 0.2 MG/DL (0.2-1.0); TOTAL PROTEIN 7.6 GM/DL (6.4-8.2)
[2017-08-16 13:41] LABS: ALKALINE PHOSPHATASE 70 U/L (45-117)
[2017-08-16 13:44] LABS: TROPONIN I LESS THAN 0.02 NG/ML (0.02-0.05)
[2017-08-16 14:09] VITALS: BP 172/85
--- NOTE | 2017-08-17 11:13 | EKG ---
Date Performed: 08/16/2017 Time Performed: 12:53:15 PTAGE: 77 years EKG: Sinus rhythm POSSIBLE LEFT ATRIAL ENLARGEMENT POSSIBLE LEFT VENTRICULAR HYPERTROPHY POSSIBLE ANTERIOR MYOCARDIAL INFARCTION ABNORMAL ECG NO PREVIOUS TRACING DOCTOR: Wang Adamson Interpretating Date/Time 08/17/2017 11:13:19
== END 2017-08-16 14:20 | disposition home or self-care (01) ==
LOC: PHED 11:57
DX: M25.512 Pain in left shoulder (principal); R03.0 Elevated blood-pressure reading, without diagnosis of hypertension; R94.31 Abnormal electrocardiogram [ECG] [EKG]; M19.90 Unspecified osteoarthritis, unspecified site; K21.9 Gastro-esophageal reflux disease without esophagitis
CPT/HCPCS: 71045; 73030; 80053; 83735; 84484; 85025; 93005; 99285